=== PATIENT | male | born 1950 | race Caucasian/White ===

== ENCOUNTER 2016-07-11 09:54 | Inpatient (IN) | payer OTHER ==
[2016-07-04 15:22] LABS: BASOPHILS # (AUTO) 0.01 K/uL (0.00-0.20); BASOPHILS % (AUTO) 0.1 % (0.0-2.0); EOSINOPHILS # (AUTO) 0.13 K/uL (0.00-0.70); EOSINOPHILS % (AUTO) 1.55 % (1.0-6.0); LYMPHOCYTES # (AUTO) 1.8 K/uL (1.0-4.8); LYMPHOCYTES % (AUTO) 21.3 % (22.0-44.0); MEAN CORPUSCULAR HEMOGLOBIN 28.1 pg (26.0-34.0); MEAN CORPUSCULAR VOLUME 85 fL (80-100); MONOCYTES # (AUTO) 0.4 K/uL (0.1-1.0); MONOCYTES % (AUTO) 4.8 % (2.0-9.0); NEUTROPHILS # (AUTO) 6.2 K/uL (1.8-7.7); NEUTROPHILS % (AUTO) 72.3 % (40.0-70.0); PLATELET COUNT (AUTO) 151 K/uL (150-450); RED CELL DISTRIBUTION WIDTH 15.9 % (11.5-14.5); WHITE BLOOD COUNT (AUTO) 8.6 K/uL (4.5-11.0)
[2016-07-04 15:38] LABS: CALCIUM, TOTAL 8.6 mg/dL (8.8-10.5)
[2016-07-04 15:45] LABS: HEMOGLOBIN 19.4 g/dL (13.5-17.5)
[2016-07-04 15:46] LABS: HEMATOCRIT 58.6 % (41-53)
[~2016-07-11] VITALS: Ht 180.3 cm; Wt 95.5 kg
[~2016-07-11 09:54] MED LIST: AMIT50TA3 PO; ASPI81 PO; ATOR20TA86 PO; CeFAZolin 2 GM/DEXTROSE 50 ML IV ONE; FENO160 PO; FentaNYL CITRATE-PF 100 MCG/2 ML VIAL IVP ONE; GABA-533 PO; KETAMINE HCL 50 MG/ML 10 ML VIAL IVP ONE; KETOROLAC TROMETHAMINE 60 MG/2 ML VIAL IM ONE; LISI1TAB9 PO; LORA1TAB3 PO; METOCLOPRAMIDE HCL 5 MG/ML 2 ML VIAL IVP ONE; MIDAZOLAM HCL 2 MG/2 ML VIAL IVP ONE; ONDANSETRON HCL 4 MG/2 ML VIAL IVP ONE; PERCT10 PO; PROPOFOL 1% 20 ML VIAL IVP ONE; QUET25TA PO; SUCCINYLCHOLINE CHLORIDE 20 MG/ML 10 ML VIAL IVP ONE; TRAZ-147 PO; ZOLP10 PO
[2016-07-11] MEDS ORDERED: RINGERS SOLUTION,LACTATED 1,000 ML IV ONE (10:00)
[2016-07-11] MEDS ORDERED: BACITRACIN 28.4 GM OINTMENT TP ONE (10:22)
[2016-07-11] MEDS: SODIUM CHLORIDE 0.9% 1,000 ML IV SCH (10:49)
[2016-07-11 11:01] LABS: INR 1.1 (0.9-1.1); PROTHROMBIN TIME 11.2 SEC (9.4-11.6)
[2016-07-11] MEDS ORDERED: ACETAMINOPHEN 1000 MG/ISO-OSM 100 ML IV ONE (13:13)
[2016-07-11] MEDS ORDERED: OxyCODONE HCL/ACETAMINOPHEN 5-325 MG TABLET PO PRN (13:45)
[2016-07-11] MEDS ORDERED: BACLOFEN 10 MG TABLET PO PRN (13:45)
[2016-07-11] MEDS ORDERED: MORPHINE SULFATE 10 MG/ML SYRINGE IVP PRN (13:45)
[2016-07-11] MEDS ORDERED: FentaNYL CITRATE-PF 100 MCG/2 ML VIAL IVP PRN (13:45)
[2016-07-11] MEDS ORDERED: MEPERIDINE-PF 25 MG/ML SYRINGE IVP PRN (13:45)
[2016-07-11] MEDS ORDERED: HYDROmorphone 2 MG/ML SYRINGE IVP PRN ×3 (13:45→15:45)
[2016-07-11] MEDS ORDERED: DEXTROSE 5%-0.45% SODIUM CHL 1,000 ML IV PRN (14:48)
[2016-07-11] MEDS ORDERED: DiphenhydrAMINE HCL 50 MG/ML VIAL IVP PRN (15:00)
[2016-07-11] MEDS ORDERED: 0.9% SODIUM CHLORIDE 10 ML SYRINGE IVP PRN (15:00)
[2016-07-11] MEDS ORDERED: ACETAMINOPHEN 325 MG TABLET PO PRN (15:00)
[2016-07-11] MEDS ORDERED: ONDANSETRON HCL 4 MG/2 ML VIAL IVP PRN ×2 (15:00)
[2016-07-11] MEDS ORDERED: BISACODYL 10 MG RECTAL RECTAL SUPPOSITORY PR PRN (15:00)
[2016-07-11] MEDS ORDERED: NALOXONE HCL 0.4 MG/ML VIAL IVP PRN (15:00)
[2016-07-11] MEDS ORDERED: NALBUPHINE HCL 10 MG/ML VIAL IVP PRN (15:00)
[2016-07-11] MEDS ORDERED: NALOXONE HCL 0.4 MG/ML VIAL IM PRN (15:00)
[2016-07-11] MEDS ORDERED: PROMETHAZINE HCL 25 MG/ML VIAL IM PRN (15:00)
[2016-07-11] MEDS: MORPHINE SULFATE IV SCH ×2 (15:34→22:14)
[2016-07-11] MEDS: SODIUM CHLORIDE 0.9% IV SCH ×2 (15:34→22:14)
[2016-07-11] MEDS: HEPARIN SODIUM,PORCINE 5,000 UNITS/ML VIAL SQ SCH (16:00)
[2016-07-11 16:30] VITALS: BP 151/96
[2016-07-11] MEDS: PANTOPRAZOLE SODIUM 40 MG DR TABLET PO SCH (16:33)
[2016-07-11] MEDS: QUEtiapine FUMARATE 25 MG TABLET PO SCH ×2 (16:33→20:52)
[2016-07-11] MEDS: OXYGEN THERAPY IH SCH (16:35)
[2016-07-11] MEDS: GABAPENTIN 400 MG CAPSULE PO SCH ×2 (16:36→20:53)
[2016-07-11] MEDS: ALPRAZolam 0.25 MG TABLET PO PRN (17:57)
[2016-07-11] MEDS: HYDROCODONE/ACETAMINOPHEN 5-325 MG TABLET PO PRN (17:57)
[2016-07-11 19:41] VITALS: BP 142/87
[2016-07-11] MEDS: MORPHINE SULFATE 4 MG/ML SYRINGE IVP PRN ×2 (19:53→22:39)
[2016-07-11] MEDS ORDERED: SODIUM CHLORIDE 0.9% 500 ML IV ONE (20:27)
[2016-07-11] MEDS: ACETAMINOPHEN 1000 MG/ISO-OSM 100 ML IV SCH (20:52)
[2016-07-11] MEDS: ZOLPIDEM TARTRATE 10 MG TABLET PO PRN (20:53)
[2016-07-11] MEDS: AMITRIPTYLINE HCL 50 MG TABLET PO SCH (20:53)
[2016-07-11] MEDS: LORazepam 1 MG TABLET PO SCH (20:53)
[2016-07-11] MEDS: TraZODone HCL 100 MG TABLET PO SCH (20:53)
[2016-07-11] MEDS: ZOLPIDEM TARTRATE 5 MG TABLET PO SCH (21:00)
[2016-07-11 23:58] VITALS: BP 124/65
[2016-07-12] MEDS: HYDROCODONE/ACETAMINOPHEN 5-325 MG TABLET PO PRN ×2 (00:20→10:36)
[2016-07-12] MEDS: ACETAMINOPHEN 1000 MG/ISO-OSM 100 ML IV SCH ×2 (04:29→13:00)
[2016-07-12 04:56] VITALS: BP 116/64
[2016-07-12] MEDS: ALPRAZolam 0.25 MG TABLET PO PRN (05:08)
[2016-07-12 05:59] LABS: BASOPHILS % (AUTO) 0.3 % (0.0-2.0); EOSINOPHILS % (AUTO) 2.2 % (1.0-6.0); HEMATOCRIT 50.3 % (41-53); HEMOGLOBIN 16.2 g/dL (13.5-17.5); LYMPHOCYTES % (AUTO) 24.7 % (22.0-44.0); MEAN CORPUSCULAR HEMOGLOBIN 27.9 pg (26.0-34.0); MEAN CORPUSCULAR HGB CONC 32.3 G/dL (31.0-37.0); MEAN CORPUSCULAR VOLUME 86 fL (80-100); MONOCYTES # (AUTO) 0.7 K/uL (0.1-1.0); NEUTROPHILS # (AUTO) 5.2 K/uL (1.8-7.7); NEUTROPHILS % (AUTO) 63.8 % (40.0-70.0); PLATELET COUNT (AUTO) 156 K/uL (150-450); RED BLOOD CELL COUNT(AUTO) 5.82 MIL/uL (4.50-5.90); RED CELL DISTRIBUTION WIDTH 15.4 % (11.5-14.5); WHITE BLOOD COUNT (AUTO) 8.1 K/uL (4.5-11.0)
[2016-07-12 06:14] LABS: CALCIUM, TOTAL 7.5 mg/dL (8.8-10.5); CREATININE 1.6 mg/dL (0.60-1.30); POTASSIUM 4.3 mmol/L (3.5-5.1)
[2016-07-12 07:36] VITALS: BP 121/84
[2016-07-12] MEDS: OXYGEN THERAPY IH SCH ×2 (08:00→23:51)
[2016-07-12] MEDS: PANTOPRAZOLE SODIUM 40 MG DR TABLET PO SCH (08:13)
[2016-07-12] MEDS: HEPARIN SODIUM,PORCINE 5,000 UNITS/ML VIAL SQ SCH ×4 (08:13→23:51)
[2016-07-12] MEDS: LISINOPRIL 10 MG TABLET PO SCH (08:14)
[2016-07-12] MEDS: GABAPENTIN 400 MG CAPSULE PO SCH ×4 (08:14→22:07)
[2016-07-12] MEDS: LORazepam 1 MG TABLET PO SCH ×2 (08:14→22:07)
[2016-07-12] MEDS: QUEtiapine FUMARATE 25 MG TABLET PO SCH ×4 (08:14→22:08)
[2016-07-12] MEDS: ASPIRIN 81 MG CHEWABLE TABLET PO SCH (08:14)
[2016-07-12] MEDS: ATORVASTATIN CALCIUM 20 MG TABLET PO SCH (08:14)
[2016-07-12] MEDS: FENOFIBRATE 160 MG TABLET PO SCH (08:14)
[2016-07-12] MEDS: HYDROCHLOROTHIAZIDE 25 MG TABLET PO SCH (08:14)
[2016-07-12] MEDS: MORPHINE SULFATE 4 MG/ML SYRINGE IVP PRN (08:15)
[2016-07-12] MEDS: SODIUM CHLORIDE 0.9% 1,000 ML IV SCH (08:57)
[2016-07-12] MEDS ORDERED: [UNRECOGNIZED DRUG - OTHER] PO SCH (09:00)
[2016-07-12] MEDS ORDERED: DOCUSATE SODIUM 100 MG CAPSULE PO SCH (09:00)
[2016-07-12 11:38] VITALS: BP 131/85
[2016-07-12 16:03] VITALS: BP 128/80
[2016-07-12] MEDS: HYDROmorphone 2 MG/ML SYRINGE IVP PRN ×2 (16:40→19:12)
[2016-07-12] MEDS: OxyCODONE HCL/ACETAMINOPHEN 10-325 MG TABLET PO SCH ×3 (18:00→23:30)
[2016-07-12] MEDS ORDERED: HYDROmorphone 2 MG/ML SYRINGE IVP ONE (19:15)
[2016-07-12 19:18] VITALS: BP 122/83
[2016-07-12] MEDS: ZOLPIDEM TARTRATE 5 MG TABLET PO SCH (21:00)
[2016-07-12] MEDS: DOCUSATE SODIUM 250 MG CAPSULE PO SCH (22:07)
[2016-07-12] MEDS: AMITRIPTYLINE HCL 50 MG TABLET PO SCH (22:07)
[2016-07-12] MEDS: ZOLPIDEM TARTRATE 10 MG TABLET PO PRN (22:07)
[2016-07-12] MEDS: TraZODone HCL 100 MG TABLET PO SCH (22:07)
[2016-07-12 23:10] VITALS: BP 115/82
[2016-07-13] MEDS: HYDROmorphone 2 MG/ML SYRINGE IVP PRN ×8 (01:42→22:55)
[2016-07-13] MEDS: OxyCODONE HCL/ACETAMINOPHEN 10-325 MG TABLET PO SCH ×6 (04:00→23:53)
[2016-07-13 04:20] VITALS: BP 134/88
[2016-07-13 07:10] VITALS: BP 148/101
[2016-07-13] MEDS: PANTOPRAZOLE SODIUM 40 MG DR TABLET PO SCH (07:53)
[2016-07-13] MEDS: HYDROCHLOROTHIAZIDE 25 MG TABLET PO SCH (07:53)
[2016-07-13] MEDS: ATORVASTATIN CALCIUM 20 MG TABLET PO SCH (07:53)
[2016-07-13] MEDS: LISINOPRIL 10 MG TABLET PO SCH (07:53)
[2016-07-13] MEDS: QUEtiapine FUMARATE 25 MG TABLET PO SCH ×4 (07:53→20:47)
[2016-07-13] MEDS: GABAPENTIN 400 MG CAPSULE PO SCH ×4 (07:53→20:46)
[2016-07-13] MEDS: LORazepam 1 MG TABLET PO SCH ×2 (07:53→20:46)
[2016-07-13] MEDS: FENOFIBRATE 160 MG TABLET PO SCH (07:53)
[2016-07-13] MEDS: ASPIRIN 81 MG CHEWABLE TABLET PO SCH (07:53)
[2016-07-13] MEDS: DOCUSATE SODIUM 250 MG CAPSULE PO SCH ×2 (07:54→20:46)
[2016-07-13] MEDS: HEPARIN SODIUM,PORCINE 5,000 UNITS/ML VIAL SQ SCH ×3 (07:54→23:52)
[2016-07-13] MEDS: OXYGEN THERAPY IH SCH (08:00)
[2016-07-13] MEDS ORDERED: SODIUM PHOS/SODIUM BIPHOS 133 ML ENEMA PR ONE (10:00)
[2016-07-13] MEDS ORDERED: CYCLOBENZAPRINE HCL 10 MG TABLET PO PRN (10:00)
[2016-07-13 11:22] VITALS: BP_SYST 111; BP_SYST 119; BP_DIAS 67; BP_DIAS 72
[2016-07-13 15:36] VITALS: BP_SYST 104; BP_SYST 143; BP_DIAS 63; BP_DIAS 91
[2016-07-13] MEDS: OxyCODONE HCL/ACETAMINOPHEN 10-325 MG TABLET PO PRN (19:33)
[2016-07-13 20:26] VITALS: BP 108/64
[2016-07-13] MEDS: ZOLPIDEM TARTRATE 10 MG TABLET PO PRN (20:46)
[2016-07-13] MEDS: TraZODone HCL 100 MG TABLET PO SCH (20:46)
[2016-07-13] MEDS: AMITRIPTYLINE HCL 50 MG TABLET PO SCH (20:47)
[2016-07-13] MEDS: ZOLPIDEM TARTRATE 5 MG TABLET PO SCH (20:54)
[2016-07-13 23:30] VITALS: BP 104/60
[2016-07-14] MEDS: HYDROmorphone 2 MG/ML SYRINGE IVP PRN ×7 (00:57→23:23)
[2016-07-14] MEDS: OxyCODONE HCL/ACETAMINOPHEN 10-325 MG TABLET PO SCH ×6 (04:00→23:59)
[2016-07-14 05:55] VITALS: BP 134/78
[2016-07-14 07:49] VITALS: BP 125/80
[2016-07-14] MEDS: OXYGEN THERAPY IH SCH (08:09)
[2016-07-14] MEDS: QUEtiapine FUMARATE 25 MG TABLET PO SCH ×4 (08:10→21:14)
[2016-07-14] MEDS: DOCUSATE SODIUM 250 MG CAPSULE PO SCH ×4 (08:10→21:14)
[2016-07-14] MEDS: GABAPENTIN 400 MG CAPSULE PO SCH ×4 (08:10→21:14)
[2016-07-14] MEDS: FENOFIBRATE 160 MG TABLET PO SCH (08:10)
[2016-07-14] MEDS: PANTOPRAZOLE SODIUM 40 MG DR TABLET PO SCH (08:10)
[2016-07-14] MEDS: HYDROCHLOROTHIAZIDE 25 MG TABLET PO SCH (08:10)
[2016-07-14] MEDS: ATORVASTATIN CALCIUM 20 MG TABLET PO SCH (08:10)
[2016-07-14] MEDS: LORazepam 1 MG TABLET PO SCH ×2 (08:11→21:14)
[2016-07-14] MEDS: ASPIRIN 81 MG CHEWABLE TABLET PO SCH (08:11)
[2016-07-14] MEDS: LISINOPRIL 10 MG TABLET PO SCH (08:11)
[2016-07-14] MEDS: HEPARIN SODIUM,PORCINE 5,000 UNITS/ML VIAL SQ SCH ×3 (08:12→23:23)
[2016-07-14 11:52] VITALS: BP 122/86
[2016-07-14 15:49] VITALS: BP 106/64
[2016-07-14] MEDS: OxyCODONE HCL/ACETAMINOPHEN 10-325 MG TABLET PO PRN (16:37)
[2016-07-14 19:51] VITALS: BP 143/97
[2016-07-14] MEDS: TraZODone HCL 100 MG TABLET PO SCH (21:14)
[2016-07-14] MEDS: ZOLPIDEM TARTRATE 5 MG TABLET PO SCH (21:14)
[2016-07-14] MEDS: AMITRIPTYLINE HCL 50 MG TABLET PO SCH (21:14)
[2016-07-14 22:55] VITALS: BP 101/61
[2016-07-15] MEDS: OxyCODONE HCL/ACETAMINOPHEN 10-325 MG TABLET PO SCH ×2 (04:00→09:20)
[2016-07-15] MEDS: SODIUM CHLORIDE 0.9% 1,000 ML IV SCH (07:00)
[2016-07-15] MEDS: OXYGEN THERAPY IH SCH (08:00)
[2016-07-15 08:23] VITALS: BP 119/67
[2016-07-15] MEDS: PANTOPRAZOLE SODIUM 40 MG DR TABLET PO SCH (09:00)
[2016-07-15] MEDS: DOCUSATE SODIUM 250 MG CAPSULE PO SCH (09:00)
[2016-07-15] MEDS: HEPARIN SODIUM,PORCINE 5,000 UNITS/ML VIAL SQ SCH (09:19)
[2016-07-15] MEDS: ATORVASTATIN CALCIUM 20 MG TABLET PO SCH (09:19)
[2016-07-15] MEDS: GABAPENTIN 400 MG CAPSULE PO SCH (09:19)
[2016-07-15] MEDS: HYDROCHLOROTHIAZIDE 25 MG TABLET PO SCH (09:19)
[2016-07-15] MEDS: ASPIRIN 81 MG CHEWABLE TABLET PO SCH (09:20)
[2016-07-15] MEDS: LORazepam 1 MG TABLET PO SCH (09:20)
[2016-07-15] MEDS: FENOFIBRATE 160 MG TABLET PO SCH (09:20)
[2016-07-15] MEDS: QUEtiapine FUMARATE 25 MG TABLET PO SCH (09:20)
[2016-07-15] MEDS: LISINOPRIL 10 MG TABLET PO SCH (09:21)
[2016-07-16] MEDS ORDERED: HYDROmorphone 2 MG/ML SYRINGE ONE (08:55)
[2016-07-16] MEDS ORDERED: CeFAZolin 2 GM/DEXTROSE 50 ML IV ONE (08:55)
[2016-07-16] MEDS ORDERED: SODIUM CHLORIDE 0.9% 1,000 ML IV ONE (08:55)
== END 2016-07-15 10:45 | disposition home or self-care (01) | DRG 476 ==
LOC: 6N 09:54
PROVIDERS: ADMIT Surgery; ATTEND Surgery
PROC: 0Y6J0Z1 Detachment at Left Lower Leg, High, Open Approach (ICD-10-PCS; principal; 2016-07-11 12:54)
DX: T87.89 Other complications of amputation stump (principal); I73.9 Peripheral vascular disease, unspecified; I10 Essential (primary) hypertension; E78.00 Pure hypercholesterolemia, unspecified; Z86.14 Personal history of Methicillin resistant Staphylococcus aureus infection; Y83.5 Amputation of limb(s) as the cause of abnormal reaction of the patient, or of later complication, without mention of misadventure at the time of the procedure; Y82.8 Other medical devices associated with adverse incidents; Y92.89 Other specified places as the place of occurrence of the external cause
CPT/HCPCS: 87081; 88305; 88307; 93005; 97162; 97530; G0238; J0131; J0330; J0690; J1170; J1644; J1885; J2250; J2270; J2405; J2704; J2765; J3010; J3490; J7030; J7040; J7050